=== PATIENT | female | born 1995 | race Caucasian/White ===

== ENCOUNTER 2022-01-23 09:48 | Emergency (ER) | payer OTHER ==
[2022-01-23 11:02] LABS: HEMOGLOBIN 13.8 gm/dl (12.3-15.3); RED BLOOD COUNT 4.41 M/UL (4.00-5.10); WHITE BLOOD COUNT 21.3 K/UL (4.5-11.0)
[2022-01-23 11:25] LABS: BUN/CREATININE RATIO 32 (0-10)
== END 2022-01-23 19:25 | disposition home or self-care (01) ==
LOC: ER1 09:48
PROVIDERS: Family Medicine; Physician Assistant
DX: E34.8 Other specified endocrine disorders (principal); H53.2 Diplopia; D72.829 Elevated white blood cell count, unspecified; J45.909 Unspecified asthma, uncomplicated; F17.290 Nicotine dependence, other tobacco product, uncomplicated; Z90.49 Acquired absence of other specified parts of digestive tract; Z79.82 Long term (current) use of aspirin; Z88.0 Allergy status to penicillin; Z88.8 Allergy status to other drugs, medicaments and biological substances; Z20.822 Contact with and (suspected) exposure to COVID-19
CPT/HCPCS: 70553; 80053; 80307; 81001; 84703; 85025; 93005; 96374; 99285; A9577; J1885; U0002

== ENCOUNTER 2022-01-28 21:23 | Emergency (ER) | payer OTHER ==
[~2022-01-28] VITALS: Ht 167.6 cm; Wt 106.6 kg
[2022-01-28 22:36] LABS: HEMOGLOBIN 13.9 gm/dl (12.3-15.3); RED BLOOD COUNT 4.46 M/UL (4.00-5.10); WHITE BLOOD COUNT 13.8 K/UL (4.5-11.0)
[2022-01-28 23:03] LABS: BUN/CREATININE RATIO 31 (0-10)
[2022-01-29] MEDS ORDERED: TOPAMAX50 MG PO (11:26)
[2022-01-29] MEDS ORDERED: COMPAZINE10 MG PO (11:39)
[2022-01-29] MEDS ORDERED: TRAMADOL HCL50 MG PO (11:41)
== END 2022-01-29 11:43 | disposition home or self-care (01) ==
LOC: ER1 21:23 → CDU 01-29 10:43 → ER1 01-29 10:43 → CDU 01-29 10:43 → ER1 01-29 11:43 → CDU 01-29 11:49
PROVIDERS: Physician Assistant Medical
DX: H53.2 Diplopia (principal); F17.290 Nicotine dependence, other tobacco product, uncomplicated; Z88.1 Allergy status to other antibiotic agents; Z88.0 Allergy status to penicillin; J45.909 Unspecified asthma, uncomplicated; Z20.822 Contact with and (suspected) exposure to COVID-19
CPT/HCPCS: 80053; 83519; 84439; 84443; 85025; 85652; 86140; 99284; G0378; J1100; J1885; J2765; J3475; U0002

== ENCOUNTER 2022-01-31 18:27 | Emergency (ER) | payer OTHER ==
[~2022-01-31 18:27] MED LIST: COMPAZINE10 MG PO; TOPAMAX50 MG PO; TRAMADOL HCL50 MG PO
== END 2022-01-31 20:09 | disposition left against medical advice (07) ==
LOC: ER1 18:27
DX: Z53.21 Procedure and treatment not carried out due to patient leaving prior to being seen by health care provider (principal)

== ENCOUNTER 2022-02-01 06:22 | Emergency (ER) | payer OTHER ==
[2022-02-01 09:42] LABS: HEMOGLOBIN 14.1 gm/dl (12.3-15.3); RED BLOOD COUNT 4.44 M/UL (4.00-5.10); WHITE BLOOD COUNT 13.1 K/UL (4.5-11.0)
[2022-02-01 09:47] LABS: BUN/CREATININE RATIO 17 (0-10)
== END 2022-02-01 14:33 | disposition short-term general hospital (02) ==
LOC: ER1 06:22
PROVIDERS: Physician Assistant
DX: H53.2 Diplopia (principal); L05.91 Pilonidal cyst without abscess; F17.200 Nicotine dependence, unspecified, uncomplicated
CPT/HCPCS: 80048; 85025; 96374; 96375; 99285; J1200; J1885; J2765